=== PATIENT | male | born 1965 | race Caucasian/White ===

== ENCOUNTER 2019-09-25 02:11 | Inpatient (IN) ==
[2019-09-25] MEDS ORDERED: *HR* LORazepam 2 MG/ML VIAL IVP ONE (02:26)
[2019-09-25] MEDS ORDERED: *HR* Promethazine 25 MG/ML VIAL IVP ONE (02:26)
[2019-09-25] MEDS ORDERED: 0.9 % Sodium Chloride 1,000 ML IV ONE (02:51)
[2019-09-25 03:07] LABS: Basophils # 0.1 K/mcL (0.0-0.2); Basophils % 0.6 %; Eosinophils # 0.2 K/mcL (0.0-0.6); Eosinophils % 1.4 %; Hematocrit 36.4 % (37.5-50.1); Hemoglobin 12.2 g/dL (12.9-16.9); Immature Granulocytes % 0.3 % (0-4); Lymphocytes # 1.8 K/mcL (0.6-4.6); Lymphocytes % 14.3 %; Mean Corpuscular HGB Conc 33.5 g/dL (31.6-35.5); Mean Corpuscular Hemoglobin 30.7 pg (28.0-33.3); Mean Corpuscular Volume 91.7 fL (83.0-100.0); Mean Platelet Volume 9.7 fL (9.4-12.4); Monocytes # 1.6 K/mcL (0.0-1.3); Monocytes % 12.9 %; Neutrophils # 8.8 K/mcL (1.6-8.9); Platelet Count 467 K/mcL (140-400); Red Blood Count 3.97 M/mcL (4.19-5.50); Red Cell Distribution Width 14.3 % (11.5-14.5); Segmented Neutrophils % 70.5 %; White Blood Count 12.5 K/mcL (4.3-11.1)
[2019-09-25 03:12] LABS: Alanine Aminotransferase 37 Units/L (7-52); Albumin 4.1 g/dL (3.5-5.7); Albumin/Globulin Ratio 1.2 (1.1-2.2); Alkaline Phosphatase 272 Units/L (34-104); Amylase 62 Units/L (29-103); Aspartate Amino Transferase 65 Units/L (13-39); BUN/Creatinine Ratio 13 (6-26); Bilirubin,Total 0.8 mg/dL (0.3-1.0); Blood Urea Nitrogen 8 mg/dL (6-20); Calcium 9.2 mg/dL (8.6-10.3); Carbon Dioxide 39 mEq/L (23-29); Chloride 89 mEq/L (98-107); Globulin 3.4 g/dL (2.4-3.5); Glucose 110 mg/dL (70-105); Lipase 30 Units/L (11-82); Magnesium 1.7 mg/dL (1.6-2.6); Osmolality,Calculated 279 (280-300); Potassium 3.1 mEq/L (3.5-5.1); Prothrombin Time 11.1 Seconds (9.4-12.1); Sodium 135 mEq/L (136-145); Total Protein 7.5 g/dL (6.4-8.9); Troponin I < 0.03 ng/mL (< 0.04); eGFR For African Americans > 60 (> 60); eGFR For Non-African Americans > 60 (> 60)
[2019-09-25 03:13] LABS: D-Dimer < 500 ng/mLFEU (0-500)
[2019-09-25 03:17] LABS: Bilirubin,Urine Negative (Negative); Blood,Urine Trace-intact (Negative); Clarity,Urine Clear (Clear); Color,Urine Yellow (Yellow); Glucose,Urine (UA) Normal (Normal); Ketones,Urine Negative (Negative); Leukocyte Esterase,Urine Negative (Negative); Nitrite,Urine Negative (Negative); PH,Urine 8.5 pH Units (5.0-8.0); Protein,Urine Negative (Neg-Trace); Urobilinogen,Urine Normal (Normal)
[2019-09-25 03:22] LABS: Squamous Epithelial Cell,Urine Few per lpf (None-Few)
[2019-09-25 03:23] LABS: Bacteria,Urine Few per hpf (None-Few); Mucus,Urine Few per lpf (Few); RBC,Urine 0-3 per hpf (0-3); WBC,Urine 0-3 per hpf (0-3)
[2019-09-25] MEDS ORDERED: *HR* LORazepam 2 MG/ML VIAL IVP PRN ×4 (04:08→04:27)
[2019-09-25] MEDS ORDERED: Naloxone 0.4 MG/ML INJ IVP PRN (04:27)
[2019-09-25] MEDS ORDERED: *HR* Promethazine 25 MG/ML VIAL IVP PRN (04:27)
[2019-09-25] MEDS: 0.9 % Sodium Chloride 1,000 ML IVC SCH ×2 (06:04→14:42)
[2019-09-25] MEDS: amLODIPine 5 MG TABLET PO SCH (08:15)
[2019-09-25] MEDS: Gabapentin 400 MG CAPSULE PO SCH ×2 (08:15→16:10)
[2019-09-25] MEDS: predniSONE 20 MG TABLET PO SCH (08:16)
[2019-09-25] MEDS: Thiamine (B-1) 100 MG TABLET PO SCH (08:16)
[2019-09-25] MEDS ORDERED: METHADONE PO SCH (09:00)
[2019-09-25] MEDS: *HR* LORazepam 2 MG/ML VIAL IVP PRN ×3 (09:01→17:14)
[2019-09-25] MEDS: Ipratropium/Albuterol Neb 3 ML IH SCH ×3 (09:59→22:15)
[2019-09-25] MEDS: *HR* Methadone 10 MG TABLET PO SCH (11:05)
[2019-09-25] MEDS: Nicotine 21 MG PATCH.TD24 TD SCH (16:10)
[2019-09-25] MEDS ORDERED: Thiamine (B-1) 100 MG, Folic Acid 1 MG, MVI, adult with vitamin K 10 ML in 0.9 % Sodi... IVPB SCH ×2 (18:00)
[2019-09-25] MEDS ORDERED: Gabapentin 400 MG CAPSULE PO SCH (21:00)
[2019-09-26] MEDS: Mirtazapine 15 MG TABLET PO SCH ×2 (01:02→20:17)
[2019-09-26] MEDS: *HR* LORazepam 2 MG/ML VIAL IVP PRN ×4 (02:04→20:18)
[2019-09-26] MEDS: Ipratropium/Albuterol Neb 3 ML IH SCH ×4 (04:06→22:00)
[2019-09-26] MEDS: *HR* Enoxaparin 40 MG/0.4 ML SYRINGE SQ SCH (06:11)
[2019-09-26] MEDS: *HR* Methadone 10 MG TABLET PO SCH (07:34)
[2019-09-26] MEDS: predniSONE 20 MG TABLET PO SCH (07:34)
[2019-09-26 08:21] LABS: Hematocrit 35.4 % (37.5-50.1); Hemoglobin 11.9 g/dL (12.9-16.9); Mean Corpuscular HGB Conc 33.6 g/dL (31.6-35.5); Mean Corpuscular Hemoglobin 30.4 pg (28.0-33.3); Mean Corpuscular Volume 90.5 fL (83.0-100.0); Mean Platelet Volume 9.4 fL (9.4-12.4); Platelet Count 430 K/mcL (140-400); Red Blood Count 3.91 M/mcL (4.19-5.50); Red Cell Distribution Width 14.2 % (11.5-14.5); White Blood Count 11.9 K/mcL (4.3-11.1)
[2019-09-26 08:38] LABS: BUN/Creatinine Ratio 16 (6-26); Blood Urea Nitrogen 8 mg/dL (6-20); Calcium 8.7 mg/dL (8.6-10.3); Carbon Dioxide 34 mEq/L (23-29); Chloride 92 mEq/L (98-107); Glucose 106 mg/dL (70-105); Osmolality,Calculated 275 (280-300); Potassium 3.6 mEq/L (3.5-5.1); Sodium 133 mEq/L (136-145); eGFR For African Americans > 60 (> 60); eGFR For Non-African Americans > 60 (> 60)
[2019-09-26] MEDS: Gabapentin 300 MG CAPSULE PO SCH ×4 (09:55→20:17)
[2019-09-26] MEDS: Thiamine (B-1) 100 MG TABLET PO SCH (09:55)
[2019-09-26] MEDS: amLODIPine 5 MG TABLET PO SCH (09:55)
[2019-09-26] MEDS: Nicotine 21 MG PATCH.TD24 TD SCH (09:58)
[2019-09-26] MEDS: 0.9 % Sodium Chloride 1,000 ML IVC SCH ×2 (13:30→20:16)
[2019-09-26 16:55] LABS: Amphetamine Screen,Urine Negative ng/mL (Cutoff=1000); Barbiturate Screen,Urine Negative ng/mL (Cutoff=200); Benzodiazepines Screen,Urine Negative ng/mL (Cutoff=200); Cannabinoid Screen,Urine Positive ng/mL (Cutoff = 50); Cocaine Screen,Urine Negative ng/mL (Cutoff= 300); Opiate Screen,Urine Negative ng/mL (Cutoff=300); Phencyclidine Screen,Urine Negative ng/mL (Cutoff=25)
[2019-09-27] MEDS: *HR* LORazepam 2 MG/ML VIAL IVP PRN ×3 (00:49→07:00)
[2019-09-27] MEDS: Ipratropium/Albuterol Neb 3 ML IH SCH (02:25)
[2019-09-27] MEDS ORDERED: diazePAM 10 MG TABLET PO SCH (05:59)
[2019-09-27 06:30] VITALS: BP 168/100
[2019-09-27] MEDS ORDERED: diazePAM 10 MG TABLET PO ONE (06:38)
[2019-09-27] MEDS: *HR* Methadone 10 MG TABLET PO SCH (06:59)
[2019-09-27] MEDS: *HR* Enoxaparin 40 MG/0.4 ML SYRINGE SQ SCH (06:59)
[2019-09-27 09:35] LABS: Adenovirus Not Detected (Not Detect); Bordetella Pertussis Not Detected (Not Detect); Chlamydophila pneumoniae Not Detected (Not Detect); Coronavirus 229E Not Detected (Not Detect); Coronavirus HKU1 Not Detected (Not Detect); Coronavirus NL63 Not Detected (Not Detect); Coronavirus OC43 Not Detected (Not Detect); Human Metapneumovirus Not Detected (Not Detect); Human Rhinovirus/Enterovirus Not Detected (Not Detect); Influenza A Subtype 2009 H1 Not Detected (Not Detect); Influenza B Not Detected (Not Detect); Mycoplasma pneumoniae Not Detected (Not Detect); Parainfluenza Virus 1 Not Detected (Not Detect); Parainfluenza Virus 2 Not Detected (Not Detect); Parainfluenza Virus 3 Not Detected (Not Detect); Parainfluenza Virus 4 Not Detected (Not Detect); Respiratory Syncytial Virus Not Detected (Not Detect)
== END 2019-09-27 07:50 | disposition short-term general hospital (02) ==
LOC: EMEROOPIK 02:11 → INPPIK 02:11
PROVIDERS: ADMIT Family Medicine; ATTEND Family Medicine

== ENCOUNTER 2019-12-20 11:34 | Inpatient (IN) ==
[2019-12-20 12:29] LABS: Basophils # 0.1 K/mcL (0.0-0.2); Basophils % 1.7 %; Eosinophils # 0.1 K/mcL (0.0-0.6); Eosinophils % 2.3 %; Hematocrit 35.7 % (37.5-50.1); Hemoglobin 11.6 g/dL (12.9-16.9); Immature Granulocytes % 0.3 % (0-4); Lymphocytes # 0.7 K/mcL (0.6-4.6); Mean Corpuscular HGB Conc 32.5 g/dL (31.6-35.5); Mean Corpuscular Hemoglobin 30.1 pg (28.0-33.3); Mean Corpuscular Volume 92.7 fL (83.0-100.0); Mean Platelet Volume 8.7 fL (9.4-12.4); Monocytes # 0.4 K/mcL (0.0-1.3); Monocytes % 11.3 %; Neutrophils # 2.2 K/mcL (1.6-8.9); Platelet Count 196 K/mcL (140-400); Red Blood Count 3.85 M/mcL (4.19-5.50); Red Cell Distribution Width 14.8 % (11.5-14.5); Segmented Neutrophils % 63.4 %; White Blood Count 3.5 K/mcL (4.3-11.1)
[2019-12-20 12:34] LABS: ABG Base Excess 9 mEq/L (-2 to 3); ABG HCO3 37 mEq/L (21-27); ABG Oxygen Saturation 92 % (95-98); ABG PCO2 71 mmHg (35-45); ABG PH 7.33 pH Units (7.32-7.45); ABG PO2 72 mmHg (85-104); ABG TCO2 39 mEq/L (20-26)
[2019-12-20] MEDS ORDERED: *HR* LORazepam 2 MG/ML VIAL IVP ONE ×2 (12:36→19:57)
[2019-12-20 12:39] LABS: Bilirubin,Urine Negative (Negative); Blood,Urine Trace-intact (Negative); Clarity,Urine Clear (Clear); Color,Urine Yellow (Yellow); Glucose,Urine (UA) Normal (Normal); Ketones,Urine Negative (Negative); Leukocyte Esterase,Urine Negative (Negative); Nitrite,Urine Negative (Negative); Protein,Urine Negative (Neg-Trace); Specific Gravity,Urine 1.025 (1.010-1.025); Urobilinogen,Urine Normal (Normal)
[2019-12-20 12:44] LABS: Alanine Aminotransferase 30 Units/L (7-52); Albumin 3.6 g/dL (3.5-5.7); Albumin/Globulin Ratio 1.2 (1.1-2.2); Alkaline Phosphatase 93 Units/L (34-104); Aspartate Amino Transferase 56 Units/L (13-39); BUN/Creatinine Ratio 7 (6-26); Bilirubin,Total 0.2 mg/dL (0.3-1.0); Blood Urea Nitrogen 5 mg/dL (6-20); Calcium 8.3 mg/dL (8.6-10.3); Carbon Dioxide 37 mEq/L (23-29); Chloride 93 mEq/L (98-107); Glucose 98 mg/dL (70-105); Osmolality,Calculated 285 (280-300); Potassium 3.2 mEq/L (3.5-5.1); Sodium 139 mEq/L (136-145); Total Protein 6.6 g/dL (6.4-8.9); eGFR For African Americans > 60 (> 60); eGFR For Non-African Americans > 60 (> 60)
[2019-12-20 12:46] LABS: Troponin I < 0.03 ng/mL (< 0.04)
[2019-12-20 12:51] LABS: Bacteria,Urine Few per hpf (None-Few); Hyaline Casts,Urine Few per lpf (None Seen); Mucus,Urine Few per lpf (None-Few); RBC,Urine 0-3 per hpf (0-3); Squamous Epithelial Cell,Urine Few per hpf (None-Few); WBC,Urine 0-3 per hpf (0-3)
[2019-12-20 12:52] LABS: Amphetamine Screen,Urine Negative ng/mL (Cutoff=1000); Barbiturate Screen,Urine Positive ng/mL (Cutoff=200); Benzodiazepines Screen,Urine Negative ng/mL (Cutoff=200); Cannabinoid Screen,Urine Positive ng/mL (Cutoff = 50); Cocaine Screen,Urine Negative ng/mL (Cutoff= 300); Opiate Screen,Urine Negative ng/mL (Cutoff=300); Phencyclidine Screen,Urine Negative ng/mL (Cutoff=25)
[2019-12-20] MEDS ORDERED: Naloxone 0.4 MG/ML INJ IVP PRN (16:17)
[2019-12-20] MEDS ORDERED: Ondansetron 4 MG/2 ML VIAL IVP PRN (16:17)
[2019-12-20] MEDS: levoFLOXacin 750 MG/150 ML 750 MG/150 ML BAG IVPB SCH (17:53)
[2019-12-20] MEDS: 0.9 % Sodium Chloride 1,000 ML IVC SCH (17:53)
[2019-12-20] MEDS: Ipratropium/Albuterol Neb 3 ML IH SCH (20:04)
[2019-12-20] MEDS: Thiamine (B-1) 100 MG, Folic Acid 1 MG, MVI, adult with vitamin K 10 ML in 0.9 % Sodi... IVPB SCH (20:20)
[2019-12-20] MEDS: Lactulose Oral Soln 20 GM/30 ML UDC PO SCH (20:20)
[2019-12-20] MEDS ORDERED: *HR* LORazepam 2 MG/ML VIAL IVP PRN (22:44)
[2019-12-20] MEDS: *HR* LORazepam 2 MG/ML VIAL IVP PRN (23:44)
[2019-12-20] MEDS: MethylPREDNISolone 40 MG/ML VIAL IVP SCH (23:59)
[2019-12-21] MEDS: Ipratropium/Albuterol Neb 3 ML IH SCH ×6 (00:25→20:17)
[2019-12-21 01:02] LABS: ABG Base Excess 9 mEq/L (-2 to 3); ABG HCO3 35 mEq/L (21-27); ABG Oxygen Saturation 92 % (95-98); ABG PCO2 53 mmHg (35-45); ABG PH 7.42 pH Units (7.32-7.45); ABG PO2 63 mmHg (85-104); ABG TCO2 37 mEq/L (20-26)
[2019-12-21] MEDS: *HR* Enoxaparin 40 MG/0.4 ML SYRINGE SQ SCH (06:31)
[2019-12-21] MEDS: *HR* LORazepam 2 MG/ML VIAL IVP PRN ×3 (06:31→23:27)
[2019-12-21 06:36] LABS: Hematocrit 38.6 % (37.5-50.1); Hemoglobin 12.8 g/dL (12.9-16.9); Immature Granulocytes % 0.4 % (0-4); Lymphocytes # 0.4 K/mcL (0.6-4.6); Lymphocytes % 13.4 %; Mean Corpuscular HGB Conc 33.2 g/dL (31.6-35.5); Mean Corpuscular Volume 90.4 fL (83.0-100.0); Mean Platelet Volume 9.3 fL (9.4-12.4); Monocytes # 0.1 K/mcL (0.0-1.3); Monocytes % 2.6 %; Neutrophils # 2.3 K/mcL (1.6-8.9); Platelet Count 213 K/mcL (140-400); Red Blood Count 4.27 M/mcL (4.19-5.50); Red Cell Distribution Width 14.2 % (11.5-14.5); Segmented Neutrophils % 83.6 %; White Blood Count 2.7 K/mcL (4.3-11.1)
[2019-12-21] MEDS: 0.9 % Sodium Chloride 1,000 ML IVC SCH (06:37)
[2019-12-21 06:58] LABS: Alanine Aminotransferase 26 Units/L (7-52); Albumin 3.5 g/dL (3.5-5.7); Albumin/Globulin Ratio 1.1 (1.1-2.2); Alkaline Phosphatase 93 Units/L (34-104); Aspartate Amino Transferase 42 Units/L (13-39); BUN/Creatinine Ratio 7 (6-26); Bilirubin,Total 0.7 mg/dL (0.3-1.0); Blood Urea Nitrogen 4 mg/dL (6-20); Calcium 8.6 mg/dL (8.6-10.3); Carbon Dioxide 34 mEq/L (23-29); Chloride 93 mEq/L (98-107); Chol/HDL Ratio 2.3 (0-4.9); Cholesterol 115 mg/dL (< 200); Globulin 3.1 g/dL (2.4-3.5); Glucose 130 mg/dL (70-105); HDL Cholesterol 50 mg/dL (40-59); LDL Cholesterol,Calculated 57 mg/dL (0-99); Magnesium 1.5 mg/dL (1.6-2.6); Osmolality,Calculated 283 (280-300); Phosphorous 2.3 mg/dL (2.7-4.5); Sodium 137 mEq/L (136-145); Total Protein 6.6 g/dL (6.4-8.9); Triglycerides 38 mg/dL (< 150); eGFR For African Americans > 60 (> 60); eGFR For Non-African Americans > 60 (> 60)
[2019-12-21] MEDS ORDERED: Magnesium Sulfate 1 GM/102 ML PIGGYBACK IVPB ONE (07:44)
[2019-12-21] MEDS: MethylPREDNISolone 40 MG/ML VIAL IVP SCH ×3 (08:54→23:27)
[2019-12-21] MEDS: Lactulose Oral Soln 20 GM/30 ML UDC PO SCH ×3 (08:54→20:31)
[2019-12-21] MEDS: hydrOXYzine pamoate 25 MG CAPSULE PO SCH ×3 (10:45→20:32)
[2019-12-21] MEDS: Nicotine 21 MG PATCH.TD24 TD SCH (10:46)
[2019-12-21] MEDS: Budesonide/Formoterol 160/4.5 1 PUFF INH IH SCH ×2 (10:56→20:18)
[2019-12-21] MEDS: Gabapentin 400 MG CAPSULE PO SCH ×3 (11:07→20:32)
[2019-12-21] MEDS: *HR* Methadone 10 MG TABLET PO SCH (12:17)
[2019-12-21] MEDS ORDERED: Gabapentin 400 MG CAPSULE PO SCH (13:00)
[2019-12-21] MEDS: levoFLOXacin 750 MG/150 ML 750 MG/150 ML BAG IVPB SCH (17:06)
[2019-12-21] MEDS: carvediloL 6.25 MG TABLET PO SCH (17:07)
[2019-12-21] MEDS: Thiamine (B-1) 100 MG, Folic Acid 1 MG, MVI, adult with vitamin K 10 ML in 0.9 % Sodi... IVPB SCH (18:32)
[2019-12-21] MEDS ORDERED: Mirtazapine 15 MG TABLET PO SCH (21:00)
[2019-12-22] MEDS: Ipratropium/Albuterol Neb 3 ML IH SCH ×4 (00:50→11:01)
[2019-12-22] MEDS: *HR* Enoxaparin 40 MG/0.4 ML SYRINGE SQ SCH (06:53)
[2019-12-22 08:11] LABS: Basophils % 0.1 %; Hemoglobin 13.4 g/dL (12.9-16.9); Immature Granulocytes % 0.4 % (0-4); Lymphocytes # 1.2 K/mcL (0.6-4.6); Lymphocytes % 16.1 %; Mean Corpuscular HGB Conc 33.5 g/dL (31.6-35.5); Mean Corpuscular Hemoglobin 30.1 pg (28.0-33.3); Mean Corpuscular Volume 89.9 fL (83.0-100.0); Mean Platelet Volume 9.2 fL (9.4-12.4); Monocytes # 0.6 K/mcL (0.0-1.3); Monocytes % 7.6 %; Neutrophils # 5.7 K/mcL (1.6-8.9); Platelet Count 196 K/mcL (140-400); Red Blood Count 4.45 M/mcL (4.19-5.50); Red Cell Distribution Width 14.7 % (11.5-14.5); Segmented Neutrophils % 75.8 %; White Blood Count 7.5 K/mcL (4.3-11.1)
[2019-12-22] MEDS: Budesonide/Formoterol 160/4.5 1 PUFF INH IH SCH (08:17)
[2019-12-22 08:30] LABS: BUN/Creatinine Ratio 8 (6-26); Blood Urea Nitrogen 5 mg/dL (6-20); Calcium 8.8 mg/dL (8.6-10.3); Carbon Dioxide 34 mEq/L (23-29); Chloride 97 mEq/L (98-107); Glucose 128 mg/dL (70-105); Magnesium 1.8 mg/dL (1.6-2.6); Osmolality,Calculated 285 (280-300); Potassium 3.7 mEq/L (3.5-5.1); Sodium 138 mEq/L (136-145); eGFR For African Americans > 60 (> 60); eGFR For Non-African Americans > 60 (> 60)
[2019-12-22] MEDS: Gabapentin 400 MG CAPSULE PO SCH ×2 (09:03→11:50)
[2019-12-22] MEDS: carvediloL 6.25 MG TABLET PO SCH (09:03)
[2019-12-22] MEDS: hydrOXYzine pamoate 25 MG CAPSULE PO SCH (09:03)
[2019-12-22] MEDS: *HR* Methadone 10 MG TABLET PO SCH (09:04)
[2019-12-22] MEDS: MethylPREDNISolone 40 MG/ML VIAL IVP SCH (09:05)
[2019-12-22] MEDS: Nicotine 21 MG PATCH.TD24 TD SCH (09:05)
[2019-12-22] MEDS: Lactulose Oral Soln 20 GM/30 ML UDC PO SCH (09:05)
[2019-12-22] MEDS: *HR* LORazepam 2 MG/ML VIAL IVP PRN (09:18)
[2019-12-22 10:08] VITALS: BP 161/96
== END 2019-12-22 11:55 | disposition home or self-care (01) | DRG 133 ==
LOC: INPPIK 11:34 → EMEROOPIK 11:34 → INPPIK 16:51
PROVIDERS: ADMIT Family Medicine; ATTEND Family Medicine

== ENCOUNTER 2020-05-05 18:03 | Observation (INO) ==
[2020-05-05] MEDS ORDERED: 0.9 % Sodium Chloride 1,000 ML IVC ONE (18:12)
[2020-05-05 18:32] LABS: ABG Base Excess 16 mEq/L (-2 to 3); ABG HCO3 47 mEq/L (21-27); ABG Oxygen Saturation 93 % (95-98); ABG PCO2 98 mmHg (35-45); ABG PH 7.29 pH Units (7.32-7.45); ABG PO2 79 mmHg (85-104); ABG TCO2 > 50 mEq/L (20-26)
[2020-05-05 18:38] LABS: Basophils # 0.1 K/mcL (0.0-0.2); Basophils % 0.9 %; Eosinophils # 0.1 K/mcL (0.0-0.6); Eosinophils % 2.3 %; Hematocrit 34.2 % (37.5-50.1); Immature Granulocytes % 0.4 % (0-4); Lymphocytes # 1.2 K/mcL (0.6-4.6); Lymphocytes % 21.8 %; Mean Corpuscular HGB Conc 32.2 g/dL (31.6-35.5); Mean Corpuscular Volume 99.4 fL (83.0-100.0); Mean Platelet Volume 9.5 fL (9.4-12.4); Monocytes % 18.2 %; Neutrophils # 3.2 K/mcL (1.6-8.9); Platelet Count 186 K/mcL (140-400); Red Blood Count 3.44 M/mcL (4.19-5.50); Red Cell Distribution Width 14.4 % (11.5-14.5); Segmented Neutrophils % 56.4 %; White Blood Count 5.7 K/mcL (4.3-11.1)
[2020-05-05 18:59] LABS: Prothrombin Time 12.1 Seconds (9.4-12.1)
[2020-05-05 18:59] LABS: Bilirubin,Urine Negative (Negative); Blood,Urine Trace-intact (Negative); Clarity,Urine Clear (Clear); Color,Urine Yellow (Yellow); Glucose,Urine (UA) Normal (Normal); Ketones,Urine Negative (Negative); Leukocyte Esterase,Urine Negative (Negative); Nitrite,Urine Negative (Negative); Protein,Urine Negative (Neg-Trace); Specific Gravity,Urine 1.025 (1.010-1.025)
[2020-05-05 19:01] LABS: Alanine Aminotransferase 31 Units/L (7-52); Albumin 3.7 g/dL (3.5-5.7); Albumin/Globulin Ratio 1.1 (1.1-2.2); Alkaline Phosphatase 101 Units/L (34-104); Aspartate Amino Transferase 87 Units/L (13-39); BUN/Creatinine Ratio 12 (6-26); Bilirubin,Direct 0.1 mg/dL (0.0-0.2); Bilirubin,Indirect 0.7 mg/dL (0.0-1.0); Bilirubin,Total 0.8 mg/dL (0.3-1.0); Blood Urea Nitrogen 7 mg/dL (6-20); Calcium 8.5 mg/dL (8.6-10.3); Carbon Dioxide 45 mEq/L (23-29); Chloride 87 mEq/L (98-107); Ethanol 107 mg/dL (Less than 10); Globulin 3.4 g/dL (2.4-3.5); Glucose 102 mg/dL (70-105); Lipase 32 Units/L (11-82); Osmolality,Calculated 284 (280-300); Potassium 2.9 mEq/L (3.5-5.1); Sodium 138 mEq/L (136-145); Total Protein 7.1 g/dL (6.4-8.9); eGFR For African Americans > 60 (> 60); eGFR For Non-African Americans > 60 (> 60)
[2020-05-05 19:05] LABS: Bacteria,Urine Few per hpf (None-Few); Mucus,Urine Few per lpf (None-Few); Squamous Epithelial Cell,Urine Few per hpf (None-Few); WBC,Urine 0-3 per hpf (0-3)
[2020-05-05 19:08] LABS: Anisocytosis 1+ (Not Present); Platelet Estimate Normal (Normal)
[2020-05-05 19:35] LABS: Amphetamine Screen,Urine Negative ng/mL (Cutoff=1000); Barbiturate Screen,Urine Negative ng/mL (Cutoff=200); Benzodiazepines Screen,Urine Negative ng/mL (Cutoff=200); Cannabinoid Screen,Urine Positive ng/mL (Cutoff = 50); Cocaine Screen,Urine Negative ng/mL (Cutoff= 300); Opiate Screen,Urine Negative ng/mL (Cutoff=300); Phencyclidine Screen,Urine Negative ng/mL (Cutoff=25)
[2020-05-05] MEDS: Potassium Chloride Elixir 20 MEQ/15 ML UDC PO ONE ×2 (19:54→20:31)
[2020-05-05 20:21] LABS: ABG Base Excess 14 mEq/L (-2 to 3); ABG HCO3 44 mEq/L (21-27); ABG Oxygen Saturation 86 % (95-98); ABG PCO2 88 mmHg (35-45); ABG PH 7.31 pH Units (7.32-7.45); ABG PO2 60 mmHg (85-104); ABG TCO2 47 mEq/L (20-26)
[2020-05-05] MEDS ORDERED: methylPREDNISolone 125 MG/2 ML VIAL IVP ONE (20:24)
[2020-05-05] MEDS ORDERED: Ipratropium/Albuterol Neb 3 ML IH ONE (20:24)
[2020-05-05] MEDS ORDERED: methylPREDNISolone 60 MG in 0.9 % Sodium Chloride 100 ML IVPB ONE (21:35)
[2020-05-05] MEDS ORDERED: Naloxone 0.4 MG/ML INJ IVP PRN (21:35)
[2020-05-05] MEDS: 0.9 % Sodium Chloride w KCl 20 MEQ/1,000 ML MLS IVC SCH (21:51)
[2020-05-05] MEDS: Budesonide/Formoterol 160/4.5 1 PUFF INH IH SCH (22:27)
[2020-05-06] MEDS: Ipratropium/Albuterol Neb 3 ML IH SCH ×3 (00:20→08:29)
[2020-05-06] MEDS: *HR* LORazepam 2 MG/ML VIAL IVP PRN ×2 (01:21→05:30)
[2020-05-06 05:12] LABS: ABG Base Excess 13 mEq/L (-2 to 3); ABG HCO3 41 mEq/L (21-27); ABG Oxygen Saturation 91 % (95-98); ABG PCO2 63 mmHg (35-45); ABG PH 7.42 pH Units (7.32-7.45); ABG PO2 62 mmHg (85-104); ABG TCO2 43 mEq/L (20-26)
[2020-05-06] MEDS: 0.9 % Sodium Chloride w KCl 20 MEQ/1,000 ML MLS IVC SCH (05:36)
[2020-05-06] MEDS ORDERED: MethylPREDNISolone 40 MG/ML VIAL IVP SCH (06:00)
[2020-05-06 07:20] LABS: BUN/Creatinine Ratio 10 (6-26); Blood Urea Nitrogen 6 mg/dL (6-20); Calcium 8.4 mg/dL (8.6-10.3); Carbon Dioxide 39 mEq/L (23-29); Chloride 93 mEq/L (98-107); Glucose 147 mg/dL (70-105); Osmolality,Calculated 288 (280-300); Potassium 3.6 mEq/L (3.5-5.1); Sodium 139 mEq/L (136-145); eGFR For African Americans > 60 (> 60); eGFR For Non-African Americans > 60 (> 60)
[2020-05-06 07:52] LABS: Basophils % 0.6 %; Hematocrit 33.4 % (37.5-50.1); Hemoglobin 11.1 g/dL (12.9-16.9); Immature Granulocytes % 1.2 % (0-4); Lymphocytes # 0.2 K/mcL (0.6-4.6); Lymphocytes % 11.7 %; Mean Corpuscular HGB Conc 33.2 g/dL (31.6-35.5); Mean Corpuscular Hemoglobin 32.1 pg (28.0-33.3); Mean Corpuscular Volume 96.5 fL (83.0-100.0); Monocytes # 0.1 K/mcL (0.0-1.3); Monocytes % 4.9 %; Neutrophils # 1.3 K/mcL (1.6-8.9); Platelet Count 189 K/mcL (140-400); Red Blood Count 3.46 M/mcL (4.19-5.50); Red Cell Distribution Width 14.4 % (11.5-14.5); Segmented Neutrophils % 81.6 %; White Blood Count 1.6 K/mcL (4.3-11.1)
[2020-05-06] MEDS: Budesonide/Formoterol 160/4.5 1 PUFF INH IH SCH (08:29)
[2020-05-06] MEDS ORDERED: *HR* LORazepam 2 MG/ML VIAL IVP ONE (08:42)
[2020-05-06 08:55] LABS: Platelet Estimate Normal (Normal)
[2020-05-06] MEDS ORDERED: Folic Acid 1 MG TABLET PO SCH (09:00)
[2020-05-06] MEDS ORDERED: Azithromycin 500 MG in 0.9 % Sodium Chloride 250 ML IVPB SCH (09:00)
[2020-05-06] MEDS ORDERED: Thiamine (B-1) 100 MG TABLET PO SCH (09:00)
[2020-05-06] MEDS ORDERED: 0.9 % Sodium Chloride 1,000 ML IVC SCH (09:15)
[2020-05-06] MEDS ORDERED: diazePAM 10 MG/2 ML SYRINGE IVP ONE (09:39)
[2020-05-06] MEDS ORDERED: Ondansetron 4 MG/2 ML VIAL IVP ONE (09:40)
[2020-05-06 11:01] VITALS: BP 180/108
== END 2020-05-06 12:03 | disposition short-term general hospital (02) ==
LOC: INPPIK 18:03 → EMEROOPIK 18:03 → INPPIK 21:58
PROVIDERS: ADMIT Family Medicine; ATTEND Family Medicine